=== PATIENT | female | born 1970 | race Caucasian/White ===

== ENCOUNTER 2016-10-28 10:54 | Emergency (ER) | payer SELFPAY ==
[~2016-10-28] VITALS: Wt 68.2 kg
[~2016-10-28 10:54] MED LIST: GABA300C16 PO; HYDR-906 PO; IBUP400T22 PO; METF500T4 PO; herbal supplement PO
[2016-10-28] MEDS ORDERED: IBUP-1542 PO (11:48)
[2016-10-28] MEDS ORDERED: LIDOCAINE 1% (MDV) 20 ML INJ SC ONE (12:00)
[2016-10-28] MEDS ORDERED: IBUPROFEN 600 MG TAB PO ONE (12:00)
--- NOTE | 2016-10-28 12:26 | ERD ---
ER Documentation Chief Complaint Date/Time DATE: 10/28/16 TIME: 12:15 Chief Complaint r. knee swelling s/p fall 1 wk ago HPI 46-year-old woman presents with 1 week of superficial right knee swelling after mechanical fall a week ago. She denies previous episodes of swelling, denies redness, denies calf swelling or injury, denies head or neck injury, denies fevers or chills. Patient denies paresis or paresthesias. ROS All systems reviewed and are negative except as per history of present illness. Medications Home Meds Active Scripts Ibuprofen* (Motrin*) 600 Mg Tab, 600 MG PO Q8 for PAIN AND/OR INFLAMMATION, #30 TAB Prov:DAVID WHEELER MD 10/28/16 Ibuprofen* (Motrin*) 400 Mg Tab, 400 MG PO Q6H Y for PAIN AND OR ELEVATED TEMP, #30 TAB Prov:SOCORRO MIDDLETON NP 06/29/16 Gabapentin* (Gabapentin*) 300 Mg Capsule, 300 MG PO BID, #60 CAP Prov:SOCORRO MIDDLETON NP 06/29/16 Hydrocodone/Acetaminophen (Orondo 5-325 Tablet) 1 Each Tablet, 1 TAB PO Q6H Y for PAIN, #20 TAB Prov:SOCORRO MIDDLETON NP 06/29/16 Reported Medications [herbal supplement] No Conflict Check, 1 PO DAILY 02/05/13 Metformin* (Glucophage*) 500 Mg Tab, 500 MG PO DAILY 02/05/13 Allergies Allergies: Coded Allergies: No Known Allergy (Unverified , 06/28/16) PMhx/Soc Diabetes mellitus, obesity, hypertension History of Surgery: Yes (C SECTION ) Anesthesia Reaction: No Hx Neurological Disorder: No Hx Respiratory Disorders: No Hx Cardiac Disorders: No Hx Psychiatric Problems: No Hx Miscellaneous Medical Probl: Yes (DM) Hx Alcohol Use: No Hx Substance Use: No Hx Tobacco Use: Yes Smoking Status: Never smoker FmHx Family History: diabetes Physical Exam Vitals Vital Signs Date Time Temp Pulse Resp B/P Pulse Ox O2 Delivery O2 Flow Rate FiO2 10/28/16 10:55 98.0 83 20 122/63 99 Physical Exam GENERAL: Well-developed, well-nourished, well-hydrated, in no apparent distress , looks nontoxic in appearance HEENT: Moist mucous membranes, pink conjunctiva, no cervical spine tenderness or step-off deformities, no goiter, no jaundice or icterus, extraocular movements intact without pain. No submandibular induration, and no pharyngeal erythema NEURO: Alert and oriented 3, cranial nerves II through XII intact bilaterally, pupils equal round reactive to light, no focal deficits or facial asymmetry, sensation intact distally Strength 5/5 in upper and lower extremities bilaterally CARDIAC: Regular rate and rhythm, no murmurs rubs or gallops LUNGS: Clear bilaterally no wheezing crackles or stridor ABDOMEN: Soft nontender, no guarding, no rigidity, no rebound, no psoas sign no obturator sign. Normoactive bowel sounds SKIN: Warm and dry to touch, there is a soft suprapatellar bursitis of the left knee without chronic skin changes erythema or induration. It is mildly tender to touch, and there is bony arthritic changes to both knees EXTREMITIES: No clubbing cyanosis or edema, calves are bilaterally symmetrical, no Homans sign, no popliteal cord sign. Distal pulses equal and bilateral PSYCH: Normal affect without agitation or irritability Results 24 hrs Current Medications Medications (Trade) Dose Ordered Sig/Adin Route PRN Reason Start Time Stop Time Status Last Admin Dose Admin Lidocaine (Xylocaine 1% (Mdv) 20 ml) 20 ml ONCE ONCE SC 10/28/16 12:00 10/28/16 12:01 DC Ibuprofen (Motrin) 600 mg ONCE ONCE PO 10/28/16 12:00 10/28/16 12:01 DC 10/28/16 11:49 Procedures/MDM I administered ibuprofen 600 mg p.o. for patient's symptoms. Both verbal and written consent was obtained from the patient for suprapatellar bursitis aspiration of the right knee. Risks and benefits were discussed especially since the patient has diabetes mellitus. I did tell her her symptoms may resolve spontaneously with Ajit elastic bandage on NSAIDs although she preferred aspiration. Procedure note: Procedure was performed by me at the bedside. Right knee was inspected and cleansed with multiple swabs of chlorhexidine solution. Site was prepped and draped in the usual fashion. I applied 1% lidocaine anesthetic to the subcutaneous tissue over the right knee at the site of injection. After anesthetic took effect I inserted a 16-gauge needle into this suprapatellar effusion and aspirated about 45 cc of serosanguineous fluid. Patient tolerated procedure well, bleeding stopped post aspiration gauze dressing and Ajit elastic bandage was applied around the right knee for comfort and supportive measures. Follow-up instructions were provided post procedure. X-ray right knee 3V Interpreted by me: Bones: No fracture Joints: Arthritic, no dislocation Foreign body: None Differential diagnoses considered, included but not limited to acute coronary syndrome, pulmonary embolism, aortic dissection, abdominal aortic aneurysm, sepsis, stroke, meningitis, encephalitis, pneumonia, appendicitis, cholecystitis , bowel obstruction, pyelonephritis, nephrolithiasis, cystitis, as well as metabolic, hematologic, and electrolyte abnormalities. As well as abscess, cellulitis, fractures, and dislocations. Patient feels much better at this time, and vital signs are normal, symptoms have improved. I did give strict instructions to return to the ED if symptoms continue or worsen, patient will otherwise follow-up with primary care physician. Patient understood instructions and agreed to plan. Departure Diagnosis: Primary Impression: Suprapatellar bursitis of right knee Additional Impression: Knee sprain Encounter type: initial encounter Involved ligament of knee: unspecified ligament Laterality: right Qualified Code: S83.91XA - Sprain of right knee, unspecified ligament, initial encounter Condition: Good Patient Instructions: Bursitis, Knee Effusion, Knee Sprain DAVID WHEELER MD Oct 28, 2016 12:25
--- NOTE | 2016-10-28 12:50 | RADRPT ---
PROCEDURE: XR Knee. CLINICAL INDICATION: Right knee pain following injury. TECHNIQUE: 3 views of the right knee are available for review. COMPARISON: None available FINDINGS: The osseous structures demonstrate normal alignment and mineralization. No acute fracture or disloc ation is identified. There is no periostitis or osteochondral lesion. The joint spaces are well pr eserved. The soft tissues are unremarkable. IMPRESSION: Unremarkable right knee x-ray series. RPTAT: HH .Parul Schumacher MD, MD Date Time Electronically viewed and signed by .Parul Schumacher MD, on 10/28/2016 12:50 .G/
== END 2016-10-28 12:57 | disposition home or self-care (01) ==
LOC: FTE 10:54
DX: M70.51 Other bursitis of knee, right knee (principal); S83.91XA Sprain of unspecified site of right knee, initial encounter; E11.9 Type 2 diabetes mellitus without complications; I10 Essential (primary) hypertension; E66.9 Obesity, unspecified; W19.XXXA Unspecified fall, initial encounter; Y92.9 Unspecified place or not applicable; Y93.9 Activity, unspecified; Z79.84 Long term (current) use of oral hypoglycemic drugs; Z87.891 Personal history of nicotine dependence
CPT/HCPCS: 73562